=== PATIENT | female | born 1960 | race Caucasian/White ===

== ENCOUNTER → 2016-08-24 | Outpatient (CLI) | payer BC, OTHER ==
[~2016-08-24] VITALS: Ht 152.4 cm; Wt 132.9 kg
[~2016-08-24] MED LIST: LIRA18IN SQ; LISI-725 PO; REPA1TAB40 PO
[2016-08-24 15:24] VITALS: BP 125/73; PULSE 105; Ht 152.4 cm; Wt 132.9 kg
== END | disposition home or self-care (01) ==
LOC: C.NEUR 14:21
PROVIDERS: ATTEND Physician Assistant
DX: G47.33 Obstructive sleep apnea (adult) (pediatric) (principal)

== ENCOUNTER → 2016-09-04 | Outpatient (CLI) | payer OTHER ==
[2016-09-04 13:32] LABS: URINE APPEARANCE TURBID (CLEAR); URINE BILIRUBIN NEG (NEG); URINE COLOR YELLOW; URINE EPITHELIAL CELL AUTO >30 /lpf (0-5); URINE NITRITE NEG (NEG); URINE SPECIFIC GRAVITY 1.027 (1.000-1.030); UROBILINOGEN NEG (NEG); ZZUR CULT IF INDIC CLEAN CATCH YES
[2016-09-04 13:39] LABS: MANUAL MICROSCOPIC REQUIRED? NO; REVIEW REQ? NO
== END | disposition home or self-care (01) ==
LOC: C.LABMFLN 11:14
PROVIDERS: ATTEND Internal Medicine
DX: R39.9 Unspecified symptoms and signs involving the genitourinary system (principal)

== ENCOUNTER → 2016-09-24 | Outpatient (CLI) | payer OTHER ==
[~2016-09-24] MED LIST changes: -REPA1TAB40 PO; +REPA1TAB42 PO
[2016-09-24 14:04] LABS: ESTIMATED AVERAGE GLUCOSE 151 mg/dl; HA1C FLAG Normal (Normal)
[2016-09-24 14:14] LABS: RATIO 4.8 mcg/mg (0-30.0)
[2016-09-24 14:26] LABS: ALT/SGPT 37 U/L (12-78); BLOOD UREA NITROGEN 10 mg/dl (7-18); BUN/CREATININE RATIO 15.8 (10-20); CALCIUM 9.1 mg/dl (8.5-10.1); CARBON DIOXIDE 28 mmol/L (21-32); CHLORIDE 102 mmol/L (98-107); CHOLESTEROL 135 mg/dl (0-200); CREATININE 0.62 mg/dl (0.60-1.20); GLUCOSE 97 mg/dl (70-99); POTASSIUM 4.1 mmol/L (3.5-5.1); SODIUM 137 mmol/L (136-145); TRIGLYCERIDES 82 mg/dl (0-150); VERY LOW DENSITY LIPOPROT CALC 16 mg/dl
[2016-09-24 14:37] LABS: ALB/GLOB RATIO 0.9 (0.9-2); ALKALINE PHOSPHATASE 104 U/L (45-117); AST/SGOT 24 U/L (15-37); CHOLESTEROL/HDL RATIO 2.5; HDL CHOLESTEROL 53 mg/dl; LDL CHOLESTEROL CALCULATED 66 mg/dl; THYROID STIMULATING HORMONE 0.829 uIu/ml (0.300-4.500)
== END | disposition home or self-care (01) ==
LOC: C.LABMFLN 11:29
PROVIDERS: ATTEND Nurse Practitioner Adult Health
DX: I10 Essential (primary) hypertension (principal); K76.0 Fatty (change of) liver, not elsewhere classified; E11.65 Type 2 diabetes mellitus with hyperglycemia; E55.9 Vitamin D deficiency, unspecified

== ENCOUNTER → 2017-01-27 | Outpatient (CLI) | payer OTHER ==
[~2017-01-27] MED LIST changes: +REPA1TAB40 PO; -REPA1TAB42 PO
== END | disposition home or self-care (01) ==
LOC: C.PAPS 11:31
PROVIDERS: ATTEND Obstetrics & Gynecology
DX: Z12.4 Encounter for screening for malignant neoplasm of cervix (principal); Z11.51 Encounter for screening for human papillomavirus (HPV)

== ENCOUNTER → 2017-01-27 | Outpatient (CLI) | payer OTHER ==
--- NOTE | 2017-01-28 07:51 | MAMMOGRAPHY REPORT ---
BILATERAL DIGITAL SCREENING MAMMOGRAM TOMOSYNTHESIS WITH CAD: 01/27/2017 CLINICAL HISTORY: Routine screening. Patient has no complaints. TECHNIQUE: Breast tomosynthesis in addition to standard 2D mammography was performed. Current study was also evaluated with a Computer Aided Detection (CAD) system. COMPARISON: Comparison is made to exams dated: 01/27/2016 mammogram, 10/22/2014 mammogram, 10/19/2013 ma mmogram, 10/18/2012 mammogram, 03/24/2011 mammogram, and 02/13/2009 mammogram - [facility] nter. BREAST COMPOSITION: The tissue of both breasts is almost entirely fatty. FINDINGS: There is a a stable benign reniform circumscribed mass in the left upper outer quadrant an d a stable focal asymmetry with associated coarse/rim calcification also in the left upper outer quad rant posteriorly. No suspicious mass, architectural distortion or cluster of microcalcifications is seen bilaterally. IMPRESSION: ACR BI-RADS CATEGORY 2: BENIGN There is no mammographic evidence of malignancy. A 1 year screening mammogram is recommended. The pa tient will receive written notification of the results. Approximately 10% of breast cancers are not detected with mammography. A negative mammographic report should not delay biopsy if a clinically suggestive mass is present. Laila Nolasco M.D. ay/:01/27/2017 12:57:31 Tool Pusher: Eula SHEN)(Gy[place]), [facility] letter sent: Normal 1/2 BI-RADS Code: ACR BI-RADS Category 2: Benign
== END | disposition home or self-care (01) ==
LOC: C.MAMM 09:59
PROVIDERS: ATTEND Obstetrics & Gynecology
DX: Z12.31 Encounter for screening mammogram for malignant neoplasm of breast (principal); N63.21 Unspecified lump in the left breast, upper outer quadrant

== ENCOUNTER 2017-09-26 21:25 | Inpatient (IN) | payer OTHER ==
[~2017-09-26] VITALS: Ht 152.4 cm; Wt 139.8 kg
[2017-09-26] MEDS ORDERED: ACETAMINOPHEN 325 MG TAB PO STA (21:49)
[2017-09-26] MEDS ORDERED: PROCHLORPERAZINE 5 MG/ML 2 ML VIAL IV STA (21:49)
[2017-09-26] MEDS ORDERED: SODIUM CHLORIDE 0.9% 500ML 500 ML IV STA (21:49)
--- NOTE | 2017-09-26 22:07 | EMERGENCY ROOM VISIT NOTE ---
History Report prepared by Octaviano: Rony Baldwin Under the Supervision of: Dr. Julian Sidhu M.D. First contact with patient: 21:33 Chief Complaint: NEURO SYMPTOMS Stated Complaint: B/L EAR PAIN, FACIAL SWELLING,RT SIDE FACIAL DROOP History of Present Illness The patient is a 57 year old white female with a past medical history of diabetes and heart disease who presents to the Emergency Room with complaints of some persistent "numbness" and "tingling" in the right side of her face that began on Wednesday, 2 days ago. The patient states that her symptoms initially began on Wednesday, 4 days ago when she first experienced a "throbbing " in her ears bilaterally. The pain in her ears is now improved in the left ear , but is still the same in the right. The left ear was improved with Aspirin. On Wednesday the patient noticed a droop to the right side of her smile while she was going her hair in the mirror. She then developed the numbness and tingling in the right side of her face. The patient notes that her swallowing is fine as is her vision. She does note a "headache" from the persistent throbbing in her ears. She adds that she does have a family history of TIA. Source of History: patient Onset: 2 days ago Position: head (Right side of face ) Quality: numbness (tingling) Timing: other (persistent) Associated Symptoms: + headache Note: Ears throbbing Review of Systems See HPI for pertinent positives and negatives. A total of ten systems were reviewed and were otherwise negative. Past Medical & Surgical Medical Problems: (1) Endometrial hyperplasia Family History Cancer Diabetes mellitus Heart disease Hypertension Social History Smoking Status: Never Smoker Alcohol Use: none Marital Status: Occupation Status: employed Current/Historical Medications Scheduled Chlorhexidine Gluconate ([facility]vs Antiseptic Skin Clean), 1 APPLN TOP DAILY Dulaglutide (Trulicity), 1.5 ML SQ WK Insulin Glargine (Basaglar Kwikpen), 30 UNITS SQ UD Insulin Glargine (Basaglar Kwikpen), 40 UNITS SQ UD Insulin Glargine (Basaglar Kwikpen), 20 UNITS SQ BID UD Lisinopril (Lisinopril), 20 UNITS PO DAILY Repaglinide (Repaglinide), 2 MG PO BID Allergies Coded Allergies: Latex1 -Allergic Contact Dermititis (Verified Allergy, Unknown, REDNESS, ) Physical Exam Vital Signs Date Time Temp Pulse Resp B/P (MAP) Pulse Ox O2 Delivery O2 Flow Rate FiO2 09/27/17 01:25 84 16 107/54 92 Room Air 09/26/17 23:35 102 20 135/72 96 Room Air 09/26/17 21:28 36.6 102 18 154/91 95 Room Air Physical Exam GENERAL: Awake, alert, well-appearing, NAD HENT: Normocephalic, atraumatic. EYES: Normal conjunctiva. Sclera non-icteric. PERRL. No anisocoria. NECK: Supple. No nuchal rigidity. FROM. RESPIRATORY: CTAB, no rhonchi, wheezing, crackles CARDIAC: RRR, no MRG ABDOMEN: Soft, NTND, BS+ MSK: No chest wall TTP, no LE edema NEURO: CN 2-12 intact with the exception of some right sided mouth drooping, 5/ 5 upper and lower extremity strength, no dysmetria, no drift, good finger to nose, no sensory deficits. Finger count grossly normal. SKIN: No rash or jaundice noted. Medical Decision & Procedures ER Provider Diagnostic Interpretation: Radiology results as stated below per my review and radiologist interpretation: CT HEAD WITHOUT CONTRAST (CT) CLINICAL HISTORY: Right facial droop COMPARISON STUDY: No previous studies for comparison. TECHNIQUE: Axial CT of the brain is performed from the vertex to the skull base. IV contrast was not administered for this examination. A dose lowering technique was utilized adhering to the principles of ALARA. CT DOSE: 601.98 mGy.cm FINDINGS: No intra or extra-axial mass lesions are visualized. There is no CT evidence of acute cortical infarction. There is no evidence of midline shift. There is no acute hemorrhage. No calvarial fractures are visualized. There are minor white matter hypodensities likely on a small vessel basis. There is no evidence of pathologic ventricular dilatation. There is no evidence of acute sinusitis IMPRESSION: No acute intracranial findings Electronically signed by: Mansoor Figueroa M.D. 09/26/2017 10:11 PM Dictated Date/Time: 09/26/2017 10:10 PM MRI head: Impression: Enhancing T2 weighted hyperintensity in the right ruddy near the location of the facial nuclei which most likely represents a subacute infarction. Demyelinating lesion could potentially have a similar appearance. However, no other lesions are seen. No mass lesion, mass-effect, or hemorrhage. Mild parenchymal volume loss. Orbits appear normal. Right middle ear and mastoid effusion. Recommend correlation for symptoms of otomastoiditis. Paranasal sinuses are clear. Laboratory Results 09/26/17 22:15 Red Blood Count 4.33, Mean Corpuscular Volume 91.5, Mean Corpuscular Hemoglobin 29.3, Mean Corpuscular Hemoglobin Concent 32.1, Mean Platelet Volume 9.8, Neutrophils (%) (Auto) 66.7, Lymphocytes (%) (Auto) 25.5, Monocytes (%) (Auto) 7.2, Eosinophils (%) (Auto) 0.0, Basophils (%) (Auto) 0.2, Neutrophils # (Auto) 6.02, Lymphocytes # (Auto) 2.30, Monocytes # (Auto) 0.65, Eosinophils # (Auto) 0.00, Basophils # (Auto) 0.02 09/26/17 22:15 Test 09/26/17 22:15 09/26/17 23:30 White Blood Count 9.03 K/uL (4.8-10.8) Red Blood Count 4.33 M/uL (4.2-5.4) Hemoglobin 12.7 g/dL (12.0-16.0) Hematocrit 39.6 % (37-47) Mean Corpuscular Volume 91.5 fL (80-100) Mean Corpuscular Hemoglobin 29.3 pg (25-34) Mean Corpuscular Hemoglobin Concent 32.1 g/dl (32-36) Platelet Count 286 K/uL (130-400) Mean Platelet Volume 9.8 fL (7.4-10.4) Neutrophils (%) (Auto) 66.7 % Lymphocytes (%) (Auto) 25.5 % Monocytes (%) (Auto) 7.2 % Eosinophils (%) (Auto) 0.0 % Basophils (%) (Auto) 0.2 % Neutrophils # (Auto) 6.02 K/uL (1.4-6.5) Lymphocytes # (Auto) 2.30 K/uL (1.2-3.4) Monocytes # (Auto) 0.65 K/uL (0.11-0.59) Eosinophils # (Auto) 0.00 K/uL (0-0.5) Basophils # (Auto) 0.02 K/uL (0-0.2) RDW Standard Deviation 52.1 fL (36.4-46.3) RDW Coefficient of Variation 15.6 % (11.5-14.5) Immature Granulocyte % (Auto) 0.4 % Immature Granulocyte # (Auto) 0.04 K/uL (0.00-0.02) Prothrombin Time 10.0 SECONDS (9.0-12.0) Prothromb Time International Ratio 1.0 (0.9-1.1) Activated Partial Thromboplast Time 23.9 SECONDS (21.0-31.0) Partial Thromboplastin Ratio 0.9 Anion Gap 8.0 mmol/L (3-11) Est Creatinine Clear Calc Drug Dose 116.0 ml/min Estimated GFR () 110.4 Estimated GFR (Non- 95.2 BUN/Creatinine Ratio 18.0 (10-20) Calcium Level 9.2 mg/dl (8.5-10.1) Phosphorus Level 3.6 mg/dl (2.5-4.9) Magnesium Level 2.2 mg/dl (1.8-2.4) Lyme Disease IgG Antibody NEG (NEG) Lyme Disease IgM Antibody NEG (NEG) Urine Color YELLOW Urine Appearance CLEAR (CLEAR) Urine pH 5.0 (4.5-7.5) Urine Specific [place] 1.026 (1.000-1.030) Urine Protein NEG (NEG) Urine Glucose (UA) 2+ (NEG) Urine Ketones NEG (NEG) Urine Occult Blood NEG (NEG) Urine Nitrite NEG (NEG) Urine Bilirubin NEG (NEG) Urine Urobilinogen NEG (NEG) Urine Leukocyte Esterase NEG (NEG) Urine WBC (Auto) 1-5 /hpf (0-5) Urine RBC (Auto) 0-4 /hpf (0-4) Urine Hyaline Casts (Auto) 0 /lpf (0-5) Urine Epithelial Cells (Auto) 10-20 /lpf (0-5) Urine Bacteria (Auto) NEG (NEG) Laboratory results reviewed by me Medications Administered Medications (Trade) Dose Ordered Sig/Artie Route Start Time Stop Time Status Last Admin Dose Admin Prochlorperazine Edisylate (Compazine Inj) 10 mg NOW STAT IV 09/26/17 21:49 09/26/17 21:51 DC 09/26/17 22:28 10 MG Acetaminophen (Tylenol Tab) 650 mg NOW STAT PO 09/26/17 21:49 09/26/17 21:51 DC 09/26/17 22:29 650 MG Sodium Chloride 500 ml @ 500 mls/hr Q1H STAT IV 09/26/17 21:49 09/26/17 22:48 DC 09/26/17 22:29 500 MLS/HR Methylprednisolone Sodium Succinate (Solu-Medrol IV) 125 mg NOW STAT IV 09/26/17 23:47 09/26/17 23:48 DC 09/27/17 00:00 125 MG ECG Per My Interpretation Indication: other (stroke) Rate (beats per minute): 93 Rhythm: normal sinus Findings: other (Normal [facility], normal interval, no STS or TWI) ED Course 2136: The patient was evaluated in room C5. A complete history and physical exam was performed. Medical Decision The patient is a 57 year old white female with a past medical history of diabetes and heart disease who presents to the Emergency Room with complaints of some persistent "numbness" and "tingling" in the right side of her face that began on Wednesday, 2 days ago. Nursing notes reviewed. Ancillary studies and prior records reviewed. Differential diagnosis: Etiologies such as metabolic, infection, hypoglycemia, electrolyte abnormalities , cardiac sources, intracerebral event, toxicologic, neurologic, as well as others were entertained. Patient was seen and evaluated the bedside. The patient did notice that she was having some significant ear pain approximately 5 days ago. The patient noticed that she was having some difficulty with smiling on the right side of her face beginning Wednesday. The patient denies any recent swimming or changes in elevation. On exam it is very difficult in order to look in the patient's ear canal she has very narrow canals and could not visualize appropriately the tympanic membranes. The patient does complain of pain with insertion of the otoscope. The patient does not have any drainage and the patient's auricle does not appear inflamed. Patient did have blood work completed along with a CT of the brain and Lyme's test. The patient's blood work is fairly unremarkable. Patient does have a known history of diabetes the patient's blood sugar was elevated but bicarb is normal. The patient CT was negative. Lyme's test is also negative. I did discuss with the patient that this sounds more peripheral in nature given the patient's ear pain with associated inability to raise the right side of her mouth. It is subtle. In order to further rule out central etiology the patient was agreeable to an MRI of the brain. The patient was also given some methylprednisolone as there was the thought that this may be a Arredondo's palsy. The other consideration would be given the patient's diabetes that she could have a palsy secondary to her diabetic neuropathy. Another consideration might be an infectious etiology given the patient's ear pain and discomfort. Patient's MRI was read as concerning for a small lesion in the right ruddy which would explain the patient's facial palsy. Given this I did discuss the case with the on-call hospitalist who agreed to further evaluate and treat the patient. Of note the patient had already taken 2 full dose aspirin earlier today. Medication Reconcilliation Current Medication List: was personally reviewed by me Blood Pressure Screening Patient's blood pressure: Elevated blood pressure Blood pressure disposition: Elevated BP felt to be situational Impression Primary Impression: Ischemic stroke Additional Impressions: Hyperglycemia Facial droop as late effect of cerebrovascular accident (CVA) Otitis media Scribe Attestation The scribe's documentation has been prepared under my direction and personally reviewed by me in its entirety. I confirm that the note above accurately reflects all work, treatment, procedures, and medical decision making performed by me. Departure Information Dispostion Being Evaluated By Hospitalist Referrals ,César Marroquin M.D. (PCP) Patient Instructions My [facility] Stroke History Time Last Known Well Wednesday Stroke t-PA Criteria Reviewed Does NOT meet criteria for t-PA Reason t-PA Not Given Treatment not indicated (NIH 1 and symptoms since Wednesday) Problem Qualifiers Additional Impressions: Otitis media Otitis media type: suppurative Chronicity: acute Laterality: right Recurrence: not specified as recurrent Spontaneous tympanic membrane rupture: with spontaneous rupture Qualified Codes: H66.011 - Acute suppurative otitis media with spontaneous rupture of ear drum, right ear
--- NOTE | 2017-09-26 22:12 | DIAGNOSTIC IMAGING REPORT ---
CT HEAD WITHOUT CONTRAST (CT) CLINICAL HISTORY: Right facial droop COMPARISON STUDY: No previous studies for comparison. TECHNIQUE: Axial CT of the brain is performed from the vertex to the skull base. IV contrast was not administered for this examination. A dose lowering technique was utilized adhering to the principles of ALARA. CT DOSE: 601.98 mGy.cm FINDINGS: No intra or extra-axial mass lesions are visualized. There is no CT evidence of acute cortical infarction. There is no evidence of midline shift. There is no acute hemorrhage. No calvarial fractures are visualized. There are minor white matter hypodensities likely on a small vessel basis. There is no evidence of pathologic ventricular dilatation. There is no evidence of acute sinusitis IMPRESSION: No acute intracranial findings Electronically signed by: Mansoor Figueroa M.D. 09/26/2017 10:11 PM Dictated Date/Time: 09/26/2017 10:10 PM
[2017-09-26] MEDS ORDERED: LISI-726 PO (22:15)
[2017-09-26] MEDS ORDERED: DULA0.5I SQ (22:15)
[2017-09-26] MEDS ORDERED: CHLO4SOL TOP (22:15)
[2017-09-26] MEDS ORDERED: INSU100I23 SQ ×2 (22:15)
[2017-09-26] MEDS ORDERED: REPA1TAB10 PO (22:15)
[2017-09-26 22:36] LABS: BASO % 0.2 %; BASO ABS # 0.02 K/uL (0-0.2); HEMATOCRIT 39.6 % (37-47); HEMOGLOBIN 12.7 g/dL (12.0-16.0); IG# 0.04 K/uL (0.00-0.02); LYMPH % 25.5 %; MEAN CELL VOLUME 91.5 fL (80-100); MEAN CORPUSCULAR HEMOGLOBIN 29.3 pg (25-34); MEAN CORPUSCULAR HGB CONC 32.1 g/dl (32-36); MEAN PLATELET VOLUME 9.8 fL (7.4-10.4); MONO % 7.2 %; MONO ABS # 0.65 K/uL (0.11-0.59); NEUT % 66.7 %; NEUT ABS # 6.02 K/uL (1.4-6.5); PLATELET COUNT 286 K/uL (130-400); RED CELL DISTRIBUTION WIDTH CV 15.6 % (11.5-14.5); RED CELL DISTRIBUTION WIDTH SD 52.1 fL (36.4-46.3); WHITE BLOOD COUNT 9.03 K/uL (4.8-10.8)
[2017-09-26 22:45] LABS: PTT PATIENT 23.9 SECONDS (21.0-31.0)
[2017-09-26 22:54] LABS: CALCIUM 9.2 mg/dl (8.5-10.1); CREATININE 0.71 mg/dl (0.60-1.20); PHOSPHORUS 3.6 mg/dl (2.5-4.9); POTASSIUM 3.9 mmol/L (3.5-5.1)
[2017-09-26] MEDS ORDERED: METHYLPREDNISOLONE 125 MG VIAL IV STA (23:47)
[2017-09-27] MEDS ORDERED: GADAVIST IV PRN ×2 (00:45→15:15)
[2017-09-27] MEDS ORDERED: OFLO0.3D4 OT (02:12)
[2017-09-27] MEDS ORDERED: [UNRECOGNIZED DRUG - CODE] PO (02:12)
[2017-09-27] MEDS ORDERED: MAGNESIUM HYDROXIDE SUSP 30 ML UDC PO PRN (03:00)
[2017-09-27] MEDS ORDERED: ACETAMINOPHEN 325 MG TAB PO PRN (03:00)
[2017-09-27] MEDS ORDERED: PHARMACIST DISCHARGE MED REC CONSULT PRN (03:00)
[2017-09-27] MEDS ORDERED: ONDANSETRON INJ 2 MG/ML 2 ML VIAL IV PRN (03:00)
[2017-09-27] MEDS ORDERED: AMOXICILLIN/CLAVULANATE TAB 875 MG TAB PO ONE (03:00)
[2017-09-27] MEDS ORDERED: ALUMINUM/MAGNESIUM/SIMETH (MAALOX MAX) 30 ML UDC PO PRN (03:00)
[2017-09-27] MEDS ORDERED: POLYETHYLENE (MIRALAX) 17 GM PACK PO PRN (03:00)
--- NOTE | 2017-09-27 03:28 | History and Physical ---
History & Physical Date & Time of Service: Sep 27, 2017 at 03:08 Chief Complaint: B/L Ear Pain, Facial Swelling,Rt Side Facial Droop Primary Care Physician: César Lind M.D. History of Present Illness Source: patient, hospital records, other 57 y/o F Hx DM, HTN, obese. The pt has had BL ear pain, more so on the R for approximately one week. The hearing in her R ear has deteriorated. She has not had fevers. 2 days prior, she also developed numbness of the R side of her face followed by a R facial droop. She denies any upper extremity weakness, visual changes or impaired balance. An MRI of the brain was obtained in the ER. There is evidence of a middle ear infection and mastoiditis. Additionally , a lesion in the ruddy adjacent to the facial nuclei is present and likely represents a subacute infarct. Past Medical/Surgical History 1) DM II 2) HTN 3) Obese Family History Cancer Diabetes mellitus Heart disease Hypertension Social History Smoking Status: Never Smoker Marital Status: Occupational Status: employed Immunizations History of Influenza Vaccine: No History of Tetanus Vaccine?: Yes Tetanus Immunization Date: Dec 11, 1999 History of Pneumococcal: No History of Hepatitis B Vaccine: Yes Hepatitis Immunization Date: Dec 10, 2004 Allergies Coded Allergies: Latex1 -Allergic Contact Dermititis (Verified Allergy, Unknown, REDNESS, ) Home Medications Scheduled Chlorhexidine Gluconate ([facility]vs Antiseptic Skin Clean), 1 APPLN TOP DAILY Dulaglutide (Trulicity), 1.5 ML SQ WK Insulin Glargine (Basaglar Kwikpen), 30 UNITS SQ UD Insulin Glargine (Basaglar Kwikpen), 40 UNITS SQ UD Insulin Glargine (Basaglar Kwikpen), 20 UNITS SQ BID UD Lisinopril (Lisinopril), 20 UNITS PO DAILY Repaglinide (Repaglinide), 2 MG PO BID Physical Exam Vital Signs Date Time Temp Pulse Resp B/P (MAP) Pulse Ox O2 Delivery O2 Flow Rate FiO2 09/27/17 01:25 84 16 107/54 92 Room Air 09/26/17 23:35 102 20 135/72 96 Room Air 09/26/17 21:28 36.6 102 18 154/91 95 Room Air General Appearance: WD/WN, no apparent distress Head: normocephalic Eyes: normal inspection ENT: + pertinent finding (I cannot appreciate any erythema on otoscopic exam, however, she is very tender within both ears, more so on the R) Neck: supple Respiratory/Chest: chest non-tender, lungs clear, normal breath sounds Cardiovascular: regular rate, rhythm, no edema, no gallop Abdomen/GI: normal bowel sounds, non tender, soft Back: normal inspection, no CVA tenderness Extremities/Musculoskelatal: normal inspection, no calf tenderness, normal capillary refill Neurologic/Psych: + pertinent finding (Onfull neuro exam there are no deficits aside from a R facial droop and numbness to light touch - both limited to the lower face) Skin: normal color Diagnostics Laboratory Results Results Past 24 Hours Test 09/26/17 22:15 09/26/17 23:30 09/27/17 02:55 Range/Units White Blood Count 9.03 4.8-10.8 K/uL Red Blood Count 4.33 4.2-5.4 M/uL Hemoglobin 12.7 12.0-16.0 g/dL Hematocrit 39.6 37-47 % Mean Corpuscular Volume 91.5 80-100 fL Mean Corpuscular Hemoglobin 29.3 25-34 pg Mean Corpuscular Hemoglobin Concent 32.1 32-36 g/dl Platelet Count 286 130-400 K/uL Mean Platelet Volume 9.8 7.4-10.4 fL Neutrophils (%) (Auto) 66.7 % Lymphocytes (%) (Auto) 25.5 % Monocytes (%) (Auto) 7.2 % Eosinophils (%) (Auto) 0.0 % Basophils (%) (Auto) 0.2 % Neutrophils # (Auto) 6.02 1.4-6.5 K/uL Lymphocytes # (Auto) 2.30 1.2-3.4 K/uL Monocytes # (Auto) 0.65 0.11-0.59 K/uL Eosinophils # (Auto) 0.00 0-0.5 K/uL Basophils # (Auto) 0.02 0-0.2 K/uL RDW Standard Deviation 52.1 36.4-46.3 fL RDW Coefficient of Variation 15.6 11.5-14.5 % Immature Granulocyte % (Auto) 0.4 % Immature Granulocyte # (Auto) 0.04 0.00-0.02 K/uL Prothrombin Time 10.0 9.0-12.0 SECONDS Prothromb Time International Ratio 1.0 0.9-1.1 Activated Partial Thromboplast Time 23.9 21.0-31.0 SECONDS Partial Thromboplastin Ratio 0.9 Sodium Level 138 136-145 mmol/L Potassium Level 3.9 3.5-5.1 mmol/L Chloride Level 101 98-107 mmol/L Carbon Dioxide Level 29 21-32 mmol/L Anion Gap 8.0 3-11 mmol/L Blood Urea Nitrogen 13 7-18 mg/dl Creatinine 0.71 0.60-1.20 mg/dl Est Creatinine Clear Calc Drug Dose 116.0 ml/min Estimated GFR () 110.4 Estimated GFR (Non- 95.2 BUN/Creatinine Ratio 18.0 10-20 Random Glucose 208 70-99 mg/dl Calcium Level 9.2 8.5-10.1 mg/dl Phosphorus Level 3.6 2.5-4.9 mg/dl Magnesium Level 2.2 1.8-2.4 mg/dl Lyme Disease IgG Antibody NEG NEG Lyme Disease IgM Antibody NEG NEG Urine Color YELLOW Urine Appearance CLEAR CLEAR Urine pH 5.0 4.5-7.5 Urine Specific [place] 1.026 1.000-1.030 Urine Protein NEG NEG Urine Glucose (UA) 2+ NEG Urine Ketones NEG NEG Urine Occult Blood NEG NEG Urine Nitrite NEG NEG Urine Bilirubin NEG NEG Urine Urobilinogen NEG NEG Urine Leukocyte Esterase NEG NEG Urine WBC (Auto) 1-5 0-5 /hpf Urine RBC (Auto) 0-4 0-4 /hpf Urine Hyaline Casts (Auto) 0 0-5 /lpf Urine Epithelial Cells (Auto) 10-20 0-5 /lpf Urine Bacteria (Auto) NEG NEG Diagnostic Radiology MRI: Lesion in ruddy adjacent to facial nuclei Middle ear and mastoid effusion on R Normal EKG Impression Assessment and Plan 57 y/o F Hx DM, HTN, obese. The pt has had BL ear pain, more so on the R for approximately one week. The hearing in her R ear has deteriorated. She has not had fevers. 2 days prior, she also developed numbness of the R side of her face followed by a R facial droop. She denies any upper extremity weakness, visual changes or impaired balance. An MRI of the brain was obtained in the ER. There is evidence of a middle ear infection and mastoiditis. Additionally , a lesion in the ruddy adjacent to the facial nuclei is present and likely represents a subacute infarct. 1) CVA - she is placed on daily ASA and a statin. She is assigned to telemetry with neurochecks, pending a neurology consult. A lipid profile is pending for AM. MRA is pending. Considering her potential mastoiditis and R sided facial deficits developed concomitantly, it may be that the MRI finding is incidental and that her inflammation or infection is affecting her facial nerve. The top portion of her face appears to be spared currently, although an early bells palsy should be considered. 2) Possible middle ear infection and mastoiditis causing hearing loss. She has not had fevers and her WBC is WNL. She has an appt to see an ENT specialist on Wed. Considering her symptoms and related imaging, she has been placed on Ceftriaxone. Would consider an inpt ENT consult with fevers or evidence of worsening as drainage may eventually become necessary. 3) DM II - placed on a SS 4) HTN - Lisinopril is held. This can likely be restarted in 1-2 days as the infarct appears subacute. Full code - Heparin prophylaxis Total time for this admit including review of labs, meds, imaging, records - discussion with pt and ER attending - 37 min Resuscitation Status VTE Prophylaxis Will order VTE Prophylaxis: Yes
[2017-09-27] MEDS ORDERED: IV FLUIDS COMPLETED PRN (03:30)
[2017-09-27 03:40] VITALS: BP 110/69; PULSE 91; TEMP 36.8; O2SAT 92; BMI 60.2
[2017-09-27] MEDS ORDERED: GLUCOSE 10 TABS/TUBE PO PRN (04:00)
[2017-09-27] MEDS ORDERED: DEXTROSE 50% 50 ML SYR IV PRN (04:00)
[2017-09-27] MEDS ORDERED: GLUCAGON FOR INJ 1 MG VIAL IM PRN (04:00)
[2017-09-27] MEDS ORDERED: GLUCOSE 40% GEL 15 GM TUBE PO PRN (04:00)
[2017-09-27] MEDS ORDERED: CARBOHYDRATES FOR HYPOGLYCEMIA PO PRN (04:00)
[2017-09-27] MEDS ORDERED: CEFTRIAXONE SOD INJ 1 GM in DEXTROSE 5% ADD-VANTAGE 50ML 50 ML IV SCH (06:00)
[2017-09-27] MEDS ORDERED: HEPARIN SOD 5000 UNIT/0.5 ML CARP SQ SCH (06:00)
[2017-09-27] MEDS ORDERED: AMOXICILLIN/CLAVULANATE TAB 875 MG TAB PO SCH (07:30)
[2017-09-27] MEDS: INSULIN ASPART 100 UNITS/ML 3 ML PEN SC SCH ×2 (07:49→13:16)
--- NOTE | 2017-09-27 08:13 | DIAGNOSTIC IMAGING REPORT ---
MRI OF THE BRAIN COMBO CLINICAL HISTORY: Right-sided facial droop. COMPARISON STUDY: CT of the brain dated 09/26/2017. TECHNIQUE: MRI of the brain was performed utilizing various T1 and T2-weighted sequences in the axial, sagittal, and coronal planes. Contrast-enhanced sequences were acquired following the administration of 13.5 cc of Gadavist. FINDINGS: Brain parenchyma: There is a 7 mm T2 hyperintense focus identified within the right pontomedullary junction seen on axial image #7. This demonstrates postcontrast enhancement as seen on coronal image #15. There is the suggestion of faint restricted diffusion within this lesion. There is no hemorrhage or mass effect. No additional foci of restricted diffusion are identified. No additional enhancing mass lesion is identified on the postcontrast images. Cruz-white matter differentiation is preserved. No extra-axial fluid collection is seen. The cerebellar tonsils are normal in configuration. Ventricles, sulci, and cisterns: Normal in configuration. Pituitary and sella: Unremarkable. Intracranial vasculature: Normal flow voids are maintained at the skull base. Orbits: The bony orbits are grossly intact. Orbital contents are normal in appearance. Sinuses and mastoids: Clear. Calvarium: Unremarkable. Cervical cord: Partially visualized cervical spinal cord is normal in morphology and signal intensity. IMPRESSION: 1. There is a subcentimeter T2 hyperintense enhancing lesion identified within the right pontomedullary junction. There is a question of faint restricted diffusion within this lesion and this likely represents a subacute lacunar infarct. Differential considerations include a demyelinating focus or less likely a small neoplastic lesion. Cortical correlation will be required. 3 month precautionary follow-up is recommended. 2. There is no hemorrhage. No additional foci of abnormal enhancement or restricted diffusion are identified. Electronically signed by: Stanislaw Perez M.D. 09/27/2017 8:11 AM Dictated Date/Time: 09/27/2017 7:05 AM
[2017-09-27] MEDS ORDERED: ASPIRIN 325 MG ECTAB PO SCH (09:00)
[2017-09-27] MEDS ORDERED: INSULIN GLARGINE SOLOSTAR 100 UNITS/ML 3 ML PEN SQ SCH (09:00)
--- NOTE | 2017-09-27 09:57 | Neurology Consultation ---
Neurology Consultation Date of Consultation: Sep 27, 2017. Attending Physician: Prakash Roberts D.O. Primary Care Physician: César Lind M.D. Reason for Consultation: Patient is a 57-year-old, who was asked to see the request of Dr. Ba, for neurologic consultation regarding stroke History of Present Illness Source: patient, caregiver, clinic records, hospital records Patient has a longstanding (20+ years) history of hypertension and diabetes. She is on insulin and lisinopril. Patient has no history of heart disease or dyslipidemia. In 2013 she was diagnosed with obstructive sleep apnea and has been on CPAP since. About 1 week ago, the patient noted water in her ears (presumably after showering) with a fullness in her right greater than left ear. This was annoying but not significant. She also noted some decreased hearing on the right since this time. On September 26, she awoke and after showering and getting cleaned up while she was drying her hair she noticed a right facial droop. There was no pain but she did have fullness in her right ear area. She felt tired that morning and later on in the morning. There was some nonspecific discomfort and achiness in the right head and face. There is a little bit of tingling without isela numbness in the right face as well. She is not specific as to where this tingling exactly was. She took a couple of Tylenol and did not notice any improvement. Late morning she drove from her house to a wedding shower about an hour and 15 minutes away. She felt very tired and had several bowel movements. She had eye right-sided headache and ear pain the and continued to have the face dysesthesias. She denied any pain, weakness, or numbness in the limbs, vision problems, swallowing problems, or confusion. She drove home and arrived around 5 p.m. and took 2 aspirin. She then took a nap for an hour, had 2 more bowel movements, and between 6 and 7 in the evening her noted the right facial droop. They decided to come to the emergency room. On September 26, at 2128 hours, blood pressure was 154/91, temperature 36.6, pulse 102, respiratory rate 18, and O2 saturation 95 percent. A right facial droop was noted with no other focal neurologic deficits, meningeal signs, or encephalopathy. CT scan of the head was unremarkable. MRI of the brain was obtained and showed a small faint, enhancing right pontomedullary junction lesion. It was most consistent with an acute stroke, however, a low-grade glioma could not entirely be excluded. There was no mass effect. In general there was mild diffuse atrophy and moderate chronic cerebral ischemia. I reviewed both of these films with Dr. Perez in Radiology. Although there was some trace amount of fluid in the right middle ear, there was no significant mastoiditis or sinusitis seen. CBC was unremarkable. Chem profile revealed an elevated glucose of over 200 and hemoglobin A1c of 8 Urinalysis and Lyme antibody titer was negative. This morning, the patient feels well and she had no events overnight. She remains in normal sinus rhythm. She has a dry mouth from not drinking (NPO) and has no headache pain or numbness. She has a slight hearing loss on the right still. Past Medical/Surgical History Medical Problems: (1) Calcific tendinitis of shoulder Status: Acute (2) Otitis externa Status: Acute (3) Peripheral neuropathy Status: Acute Insulin-dependent diabetes Hypertension Gastroesophageal reflux disease Sleep apnea on CPAP Chronic fatigue History of endometrial hyperplasia Post total abdominal hysterectomy and bilateral salpingo-oophorectomy Post bilateral total knee replacements [address] Zuñiga Family History Mother age 68 during a coronary artery bypass graft procedure. She also had hypertension and diabetes. Father in his mid to late 70s of renal failure. He also had coronary artery disease, diabetes, and hypertension Brother in his 40s of an [place] Social History Patient has never used tobacco products. She only rarely has a drink of alcohol. 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 Smoking Status: Never smoker Smokeless Tobacco Use: No Alcohol Use: socially Drug Use: none Marital Status: Housing Status: lives with significant other Occupation Status: unemployed Allergies Coded Allergies: Latex1 -Allergic Contact Dermititis (Verified Allergy, Unknown, REDNESS, ) Current Inpatient Medications Current Inpatient Medications Medications (Trade) Dose Ordered Sig/Artie Route Start Time Stop Time Status Last Admin Dose Admin Gadobutrol (Gadavist) 13.5 mmol UD PRN IV 09/27/17 00:45 10/01/17 00:44 Aspirin (Ecotrin Tab) 325 mg QAM PO 09/27/17 09:00 10/27/17 08:59 Miscellaneous Information (Pharmacist Discharge Med Rec Consult) 1 ea UD PRN N/A 09/27/17 03:00 10/27/17 02:59 Heparin Sodium (Porcine) (Heparin Sq 5000 Unit/0.5ml) 5,000 unit Q8 SQ 09/27/17 06:00 10/27/17 05:59 09/27/17 06:36 5,000 UNIT Acetaminophen (Tylenol Tab) 650 mg Q4H PRN PO 09/27/17 03:00 10/27/17 02:59 Al Hydrox/Mg Hydrox/Simethicone (Maalox Max Susp) 15 ml Q4H PRN PO 09/27/17 03:00 10/27/17 02:59 Magnesium Hydroxide (Milk Of Magnesia Susp) 30 ml Q12H PRN PO 09/27/17 03:00 10/27/17 02:59 Ondansetron HCl (Zofran Inj) 4 mg Q6H PRN IV 09/27/17 03:00 10/27/17 02:59 Polyethylene (Miralax Powder Packet) 17 gm DAILY PRN PO 09/27/17 03:00 10/27/17 02:59 Ceftriaxone Sodium 1 gm/ Dextrose 50 ml @ 100 mls/hr Q24H IV 09/27/17 06:00 10/07/17 05:59 09/27/17 06:32 100 MLS/HR Insulin Aspart (novoLOG ASPART) SLIDING SCALE G... ACHS SC 09/27/17 07:00 10/27/17 06:59 09/27/17 07:49 4 UNITS Insulin Glargine (Lantus Solostar Pen) 20 units BID SQ 09/27/17 09:00 10/27/17 08:59 09/27/17 07:50 20 UNITS Miscellaneous (Iv Fluids Completed) 1 ea PRN PRN N/A 09/27/17 03:30 09/27/18 03:29 Glucose (Glucose 40% Gel) 15-30 GRAMS 15 GRAMS... UD PRN PO 09/27/17 04:00 10/27/17 03:59 Glucose (Glucose Chew Tab) 4-8 Tablets 4 Tabl... UD PRN PO 09/27/17 04:00 10/27/17 03:59 Dextrose (Dextrose 50% 50ML Syringe) 25-50ML 25ML FOR ... UD PRN IV 09/27/17 04:00 10/27/17 03:59 Glucagon (Glucagon Inj) 1 mg UD PRN IM 09/27/17 04:00 10/27/17 03:59 Carbohydrates (Carbohydrates For Hypoglycemia) 15-30 GRAMS 15 grams if BSG 54-69... UD PRN PO 09/27/17 04:00 10/27/17 03:59 Review of Systems Constitutional: + fatigue, No fever, No weakness Eyes: No worsening of vision, No diplopia ENT: + hearing loss, No sore throat, No trouble swallowing Respiratory: No cough, No shortness of breath Cardiovascular: No chest pain, No palpitations Abdomen: No pain, No nausea Musculoskeletal: No joint pain, No muscle pain Genitourinary - Female: No dysuria, No urinary incontinence Neurologic: No memory loss, No weakness, No numbness/tingling, No vertigo, No balance problems Psychiatric: No depression symptoms, No anxiety Endocrine: + fatigue Hematologic / Lymphatic: No abnormal bleeding/bruising Integumentary: No rash Allergic / Immunologic: No hives Physical Exam Vital Signs (Past 24 Hrs): Date Time Temp Pulse Resp B/P (MAP) Pulse Ox O2 Delivery O2 Flow Rate FiO2 09/27/17 03:40 36.8 91 18 110/69 92 Room Air 09/27/17 03:03 92 16 137/84 95 Room Air 09/27/17 01:25 84 16 107/54 92 Room Air 09/26/17 23:35 102 20 135/72 96 Room Air 09/26/17 21:28 36.6 102 18 154/91 95 Room Air Patient is right-handed. The patient is awake and alert. Speech is normal without aphasia or dysarthria. Mentation and thought processes are intact with full orientation and normal fund of knowledge. Mood and affect are normal and appropriate. Appearance and grooming are normal. Long and short-term memory are intact. The discs are sharp with positive venous pulsations. There are no exudates, hemorrhages, or blood vessel changes seen. Pupils are 4mm bilaterally and reactive to light. Extraocular eye muscles are intact without nystagmus. Visual acuity and visual pimentel seem normal grossly to confrontation. There are no deficits to sensation of the face bilaterally. Corneal reflexes are positive bilaterally. Although there is a very mild right facial droop at the corner of the mouth it does move well voluntarily. Forehead has symmetrical strength bilaterally. Hearing seems intact grossly to voice but there may be some slight decreased on the right. Palate moves well without asymmetry. There is normal sternocleidomastoid and trapezius strength bilaterally. Tongue is midline with good strength bilaterally. Neck is with full range of motion without discomfort. There are no cervical bruits. There are no cranial or ocular bruits. Heart is without murmur. Cervical, thoracic, and lumbar spine are nontender to palpation. Gait is normal. There is good arm swing, turn, stance, and balance. Stance is quite normal eyes open or closed With outstretched arms there is no drift. There are no resting, postural, or action tremors. There is no ataxia with [id number] testing. There is good facility in the hands. There are no abnormal involuntary movements noted. Motor strength is 5/5 diffusely in the arms bilaterally including deltoids, biceps, brachioradialis, wrist flexors and extensors, pressure steamer tender, and intrinsic hand muscles. Motor strength is 5/5 diffusely in the legs bilaterally including hip flexors, quadriceps, hamstring, gastrocnemius, tibialis anterior, tibialis posterior, and peroneii muscles bilaterally. Toe extensors are normal and there is good bulk in the extensor digitorum brevis muscle bilaterally. The limbs have good tone without rigidity or spasticity, and there is no atrophy noted. Muscle bulk is normal, there is no tenderness, no myotonia noted to percussion, and no fasciculations seen. Sensory examination is intact to pin and touch throughout all four limbs. Reflexes are 1/4 in the biceps, triceps, brachioradialis, quadriceps, and Achilles tendons bilaterally. Toes are downgoing with plantar stimulation bilaterally. Peripheral pulses are present and of normal quality distally in all four limbs. There is no peripheral edema noted. Laboratory Results Past 24 Hours: 09/26/17 22:15 Red Blood Count 4.33, Mean Corpuscular Volume 91.5, Mean Corpuscular Hemoglobin 29.3, Mean Corpuscular Hemoglobin Concent 32.1, Mean Platelet Volume 9.8, Neutrophils (%) (Auto) 66.7, Lymphocytes (%) (Auto) 25.5, Monocytes (%) (Auto) 7.2, Eosinophils (%) (Auto) 0.0, Basophils (%) (Auto) 0.2, Neutrophils # (Auto) 6.02, Lymphocytes # (Auto) 2.30, Monocytes # (Auto) 0.65, Eosinophils # (Auto) 0.00, Basophils # (Auto) 0.02 09/26/17 22:15 Test 09/26/17 22:15 09/26/17 23:30 09/27/17 07:27 White Blood Count 9.03 K/uL (4.8-10.8) Red Blood Count 4.33 M/uL (4.2-5.4) Hemoglobin 12.7 g/dL (12.0-16.0) Hematocrit 39.6 % (37-47) Mean Corpuscular Volume 91.5 fL (80-100) Mean Corpuscular Hemoglobin 29.3 pg (25-34) Mean Corpuscular Hemoglobin Concent 32.1 g/dl (32-36) Platelet Count 286 K/uL (130-400) Mean Platelet Volume 9.8 fL (7.4-10.4) Neutrophils (%) (Auto) 66.7 % Lymphocytes (%) (Auto) 25.5 % Monocytes (%) (Auto) 7.2 % Eosinophils (%) (Auto) 0.0 % Basophils (%) (Auto) 0.2 % Neutrophils # (Auto) 6.02 K/uL (1.4-6.5) Lymphocytes # (Auto) 2.30 K/uL (1.2-3.4) Monocytes # (Auto) 0.65 K/uL (0.11-0.59) Eosinophils # (Auto) 0.00 K/uL (0-0.5) Basophils # (Auto) 0.02 K/uL (0-0.2) RDW Standard Deviation 52.1 fL (36.4-46.3) RDW Coefficient of Variation 15.6 % (11.5-14.5) Immature Granulocyte % (Auto) 0.4 % Immature Granulocyte # (Auto) 0.04 K/uL (0.00-0.02) Prothrombin Time 10.0 SECONDS (9.0-12.0) Prothromb Time International Ratio 1.0 (0.9-1.1) Activated Partial Thromboplast Time 23.9 SECONDS (21.0-31.0) Partial Thromboplastin Ratio 0.9 Anion Gap 8.0 mmol/L (3-11) Est Creatinine Clear Calc Drug Dose 116.0 ml/min Estimated GFR () 110.4 Estimated GFR (Non- 95.2 BUN/Creatinine Ratio 18.0 (10-20) Estimated Average Glucose 183 mg/dl Hemoglobin A1c 8.0 % (4.5-5.6) Calcium Level 9.2 mg/dl (8.5-10.1) Phosphorus Level 3.6 mg/dl (2.5-4.9) Magnesium Level 2.2 mg/dl (1.8-2.4) Lyme Disease IgG Antibody NEG (NEG) Lyme Disease IgM Antibody NEG (NEG) Urine Color YELLOW Urine Appearance CLEAR (CLEAR) Urine pH 5.0 (4.5-7.5) Urine Specific [place] 1.026 (1.000-1.030) Urine Protein NEG (NEG) Urine Glucose (UA) 2+ (NEG) Urine Ketones NEG (NEG) Urine Occult Blood NEG (NEG) Urine Nitrite NEG (NEG) Urine Bilirubin NEG (NEG) Urine Urobilinogen NEG (NEG) Urine Leukocyte Esterase NEG (NEG) Urine WBC (Auto) 1-5 /hpf (0-5) Urine RBC (Auto) 0-4 /hpf (0-4) Urine Hyaline Casts (Auto) 0 /lpf (0-5) Urine Epithelial Cells (Auto) 10-20 /lpf (0-5) Urine Bacteria (Auto) NEG (NEG) Bedside Glucose 285 mg/dl (70-90) Imaging MRI OF THE BRAIN COMBO CLINICAL HISTORY: Right-sided facial droop. COMPARISON STUDY: CT of the brain dated 09/26/2017. TECHNIQUE: MRI of the brain was performed utilizing various T1 and T2-weighted sequences in the axial, sagittal, and coronal planes. Contrast-enhanced sequences were acquired following the administration of 13.5 cc of Gadavist. FINDINGS: Brain parenchyma: There is a 7 mm T2 hyperintense focus identified within the right pontomedullary junction seen on axial image #7. This demonstrates postcontrast enhancement as seen on coronal image #15. There is the suggestion of faint restricted diffusion within this lesion. There is no hemorrhage or mass effect. No additional foci of restricted diffusion are identified. No additional enhancing mass lesion is identified on the postcontrast images. Cruz-white matter differentiation is preserved. No extra-axial fluid collection is seen. The cerebellar tonsils are normal in configuration. Ventricles, sulci, and cisterns: Normal in configuration. Pituitary and sella: Unremarkable. Intracranial vasculature: Normal flow voids are maintained at the skull base. Orbits: The bony orbits are grossly intact. Orbital contents are normal in appearance. Sinuses and mastoids: Clear. Calvarium: Unremarkable. Cervical cord: Partially visualized cervical spinal cord is normal in morphology and signal intensity. IMPRESSION: 1. There is a subcentimeter T2 hyperintense enhancing lesion identified within the right pontomedullary junction. There is a question of faint restricted diffusion within this lesion and this likely represents a subacute lacunar infarct. Differential considerations include a demyelinating focus or less likely a small neoplastic lesion. Cortical correlation will be required. 3 month precautionary follow-up is recommended. 2. There is no hemorrhage. No additional foci of abnormal enhancement or restricted diffusion are identified. Electronically signed by: Stanislaw Perez M.D. 09/27/2017 8:11 AM Impression 1. Probable very small, acute right pontomedullary CVA On MRI in has some enhancement which can be typical of an acute stroke. However , a very low-grade glioma cannot be excluded either. There is no mass effect. Her clinical picture, however, is most consistent with an acute stroke. She has some very mild right facial droop and dysesthesias of the right face which are improved. She has no right upper extremity or right lower extremity symptoms. NIH SS=1 She has multiple risk factors for stroke including longstanding diabetes and hypertension with an elevated reading on admission. 2. Right ear fullness and hearing loss There is only trace amount of fluid seen in the right middle ear by MRI and radiology notes no significant mastoiditis or sinusitis on imaging studies. She is clinically improved after having had ceftriaxone and some steroids since admission 3. Mild previous chronic cerebral ischemia noted on imaging studies Hypertension and diabetes are her major risk factors for this. 4. Chronic fatigue of uncertain etiology Plan 1. Carotid ultrasound and echocardiogram would be reasonable to obtain 2. 81 milligram aspirin tablet daily 3. Control blood pressure keeping mean arterial pressure approximately 100 4. Improved glucose control, trying to lower hemoglobin A1c to closer to 7. 5. Obtain fasting lipid profile 6. Increase activity as able and needs speech therapy to clear her for swallowing. 7. The patient already has appointment with ENT tomorrow at 3 p.m.. It may be possible for the patient to keep this appointment. 8. Follow-up MRI of the brain in 3 months with without contrast to make sure the pontomedullary junction defect has resolved. I would like to follow as an outpatient. I spent a total of 85 minutes with this case including records review, review of MRI and CT films with Dr. Perez in Radiology, direct evaluation the patient at bedside, discussion of the case with Dr. Roberts, clinical staff, and the patient herself the at bedside including differential diagnosis and treatment options.
[2017-09-27 10:20] VITALS: BP 154/82; PULSE 98; O2SAT 94
[2017-09-27] MEDS ORDERED: PERFLUTREN LIPID MICROSPHERE (DEFINITY) IV ONE (11:10)
[2017-09-27 11:14] VITALS: Ht 152.4 cm; Wt 139.8 kg
[2017-09-27 11:44] VITALS: BP 128/72; PULSE 85; TEMP 36.8; O2SAT 98
--- NOTE | 2017-09-27 12:36 | ECHOCARDIOGRAM REPORT ---
*NOTICE TO RECEIVING CONSTITUTION PARTY AGENCY This information is strictly Confidential and protected under [place] law. [place] law prohibits you from making any further disclosure of this information unless further disclosure is expressly permitted by the written consent of the person to whom it pertains or is authorized by law. A general authorization for the release of medical or other information is not sufficient for this purpose. Hospital accepts no responsibility if the information is made available to any other person, INCLUDING THE PATIENT. Interpretation Summary * Name: JESSICA HUBBARD Study Date: 09/27/2017 10:15 AM BP: 110/69 mmHg * Patient Location: C.2T\S\S243\S\1 HR: 91 * : 1960 (M/d/yyyy) Gender: Female Height: 60 in * Age: 57 yrs Ethnicity: CA Weight: 308 lb * Ordering Physician: Prakash Roberts * Referring Physician: Self, Referred * Performed By: Anjali Nugent RDCS * * Reason For Study: Cerebral Ischemia/Embolus * BSA: 2.2 m2 * No cardiac source of emboli noted. * -- Conclusions -- * Left ventricular systolic function is normal. * Grade I diastolic dysfunction, (abnormal relaxation pattern). * Injection of contrast documented no interatrial shunt. * There is mild mitral annular calcification. Procedure Details * A complete two-dimensional transthoracic echocardiogram was performed (2D, M-mode, Doppler and color flow Doppler). * The study was technically difficult. * The study was technically difficult, but visualization was adequate with the administration of Definity ultrasound contrast. * There were technical limitations due to patient'sbody habitus * A saline contrast injection was performed to assess for cardiac shunting. * The injection was performed through an intravenous line in the right arm. * The attending nurse who injected the saline contrast was Annie Orona RN. * A total of 20 cc of agitated saline was given. * A contrast injection of Definity was performed to improve assessment of LV function. * Contrast was injected into an intravenous site in the right arm. * One vial of Definity ultrasound contrast was diluted in normal saline to a total volume of 10 ml. A total of '1' ml of solution was administered during imaging. * Lot # [id number] of Definity utilized for procedure. * Expiration date 1May19. * The attending nurse who injected the contrast agent was Annie Orona RN. Left Ventricle * The left ventricle is grossly normal size. * There is normal left ventricular wall thickness. * Ejection Fraction = 55-60%. * Left ventricular systolic function is normal. * Grade I diastolic dysfunction, (abnormal relaxation pattern). * The left ventricular wall motion is normal. Right Ventricle * The right ventricle is normal in size and function. * The right ventricular systolic function is normal as assessed by tricuspid annular plane systolic excursion (TAPSE) (normal >1.5 cm). Atria * The left atrial size is normal. * Right atrial size is normal. * The interatrial septum is intact with no evidence for an atrial septal defect. * Injection of contrast documented no interatrial shunt. Mitral Valve * The mitral valve is grossly normal. * There is mild mitral annular calcification. * Significant mitral regurgitation is absent. Tricuspid Valve * The tricuspid valve is not well visualized, but is grossly normal. * Significant tricuspid regurgitation is absent. Aortic Valve * The aortic valve is normal in structure and function. * No hemodynamically significant valvular aortic stenosis. * There is no significant aortic regurgitation. Pulmonic Valve * The pulmonic valve is not well visualized. Great Vessels * The aortic root is normal size. Pericardium/Pleural * There is no pericardial effusion. MMode 2D Measurements and Calculations Ao root diam 1.9 cm Ao root area 2.9 cm\S\2 ACS 1.7 cm LVAd ap4 29.1 cm\S\2 LVLd ap4 8.0 cm EDV(MOD-sp4) 88.5 ml EDV(sp4-el) 89.9 ml LVAs ap4 16.3 cm\S\2 LVLs ap4 6.6 cm ESV(MOD-sp4) 33.6 ml ESV(sp4-el) 34.0 ml EF(MOD-sp4) 62.1 % EF(sp4-el) 62.2 % LVAd ap2 31.4 cm\S\2 LVLd ap2 8.5 cm EDV(MOD-sp2) 95.2 ml EDV(sp2-el) 98.4 ml LVAs ap2 19.9 cm\S\2 LVLs ap2 8.1 cm ESV(MOD-sp2) 41.9 ml ESV(sp2-el) 41.7 ml EF(MOD-sp2) 56.0 % EF(sp2-el) 57.6 % LVLd %diff 6.3 % EDV(MOD-bp) 94.6 ml LVLs %diff 18.3 % ESV(MOD-bp) 40.5 ml EF(MOD-bp) 57.1 % SV(MOD-sp4) 55.0 ml SI(MOD-sp4) 24.5 ml/m\S\2 SV(MOD-sp2) 53.3 ml SI(MOD-sp2) 23.8 ml/m\S\2 SV(MOD-bp) 54.0 ml SI(MOD-bp) 24.1 ml/m\S\2 SV(sp4-el) 55.9 ml SI(sp4-el) 24.9 ml/m\S\2 SV(sp2-el) 56.6 ml SI(sp2-el) 25.2 ml/m\S\2 Doppler Measurements and Calculations MV E max lesley 113.8 cm/sec MV A max lesley 133.5 cm/sec MV E/A 0.85 MV dec time 0.20 sec Ao V2 max 196.5 cm/sec Ao max PG 15.4 mmHg Ao max PG (full) 9.9 mmHg LV V1 max PG 5.6 mmHg LV V1 max 118.1 cm/sec PA V2 max 133.7 cm/sec PA max PG 7.2 mmHg
--- NOTE | 2017-09-27 15:15 | DIAGNOSTIC IMAGING REPORT ---
MRA HEAD WITHOUT CONTRAST, MRA NECK COMBO CLINICAL HISTORY: 57 years-old Female presenting with difficulty hearing, right facial droop, no recent injury or history of stroke. TECHNIQUE: MR angiography of the head was performed without the use of intravenous contrast using 3-D [id number] technique. Subsequently, MR angiography of the neck was performed before and after the administration of intravenous contrast.3-D volumetric and/or maximum intensity projection (MIP) images were subsequently reconstructed for review. IV contrast: 12.5 mL of Gadavist. COMPARISON: Noncontrast head CT from 09/26/2017. FINDINGS: MRA HEAD: Anterior circulation: Intracranial portions of the internal carotid arteries patent to the level of the termini. Anterior and middle cerebral arteries patent. Anterior communicating artery patent. Posterior circulation: Codominant vertebral arteries. Intradural portions of the vertebral arteries patent. Posterior inferior cerebellar arteries patent. Basilar artery patent. Anterior inferior cerebellar arteries poorly visualized. Superior cerebellar and posterior cerebral arteries patent. Posterior communicating arteries hypoplastic or aplastic. MRA NECK: Aortic arch: Abdominal evaluated due to motion related artifact. Innominate artery: Grossly patent. Right common carotid artery: Grossly patent. Right internal and external carotid arteries: Right carotid bifurcation patent. Right internal and external carotid arteries widely patent. Left common carotid artery: Grossly patent. Left internal and external carotid arteries: Left carotid bifurcation patent. Left internal and external carotid arteries widely patent. Left subclavian artery: Grossly patent. Vertebral arteries: Codominant vertebral arteries. Tortuosity of the proximal portions of the arteries. Origins and courses of the bilateral vertebral arteries patent. Other: Soft tissues of the neck normal allowing for the phase of contrast. IMPRESSION: 1. No significant stenosis, aneurysm, or focal vessel occlusion. 2. No dissection, significant stenosis, or focal vessel occlusion. Electronically signed by: Tai Costa M.D. 09/27/2017 3:14 PM Dictated Date/Time: 09/27/2017 3:06 PM
[2017-09-27] MEDS ORDERED: LPT20 PO (15:19)
[2017-09-27] MEDS ORDERED: ASPI81TA28 PO (15:19)
--- NOTE | 2017-09-27 15:26 | Discharge Instructions ---
Discharge Instructions Date of Service Sep 27, 2017. Admission Reason for Admission: Cva (Cerebral Vascular Accident) Discharge Discharge Diagnosis / Problem: CVA Discharge Goals Goal(s): Improve function, Improve disease control Activity Recommendations Activity Limitations: resume your previous activity . Instructions / Follow-Up Instructions / Follow-Up Medications - ASPIRIN: 81mg daily for stroke prevention - LIPITOR: statin medication to treat cholesterol, lowers risk of future stroke Small right pontomedullary stroke, ischemic Dr. Marcial recommends aspirin 81mg daily, blood pressure control, start statin therapy with Lipitor need to control diabetes better, A1c was 8.0, should be closer to 7.0 for better stroke prevention no evidence of vascular disease on MR angiography no intra-cardiac shunt on echocardiogram, the echocardiogram was normal follow up with Dr. Marcial in neurology clinic in one month, call to schedule this visit [phone] he will schedule a repeat MRI of the brain in 3 months time Right ear infection follow up with ENT tomorrow as scheduled Risk Factors for Stroke: You can reduce your chances of stroke by working with your medical provider to adopt a healthy lifestyle. Some specific ways to lower your chance of stroke are: * If you are a smoker, now is the time to stop smoking cigarettes * If you are diabetic, improve the control of your blood sugars * Avoid excessive amounts of alcohol * Control high blood pressure * Lose weight if you are overweight * Be sure to lead an active lifestyle * Eat a healthy diet low in salt, cholesterol and fat You should know about other risk factors for stroke that you are unable to control. These include: * Age 55 years or older * Male gender * Certain racial groups: , or / * Family History of Stroke, Mini stroke or Heart Attack * Sickle Cell Disease Follow Up: It is important for you to keep your follow up appointments with your medical provider. Current Hospital Diet Patient's current hospital diet: AHA Diet (Heart Healthy), Diabetes Type 2 Diet Discharge Diet Recommended Diet: AHA Diet (Heart Healthy), Diabetes Type 2 Diet Pending Studies Studies pending at discharge: no Laboratory Results Hemoglobin A1c Test 09/26/17 22:15 Range/Units Estimated Average Glucose 183 mg/dl Hemoglobin A1c 8.0 H 4.5-5.6 % Medical Emergencies . Who to Call and When: Medical Emergencies: Call 911 immediately if you experience any of the following warning signs and symptoms of Stroke: * Sudden numbness or weakness of the face, arm or leg, especially on one side of the body * Sudden confusion, trouble speaking or understanding * Sudden trouble seeing in one or both eyes * Sudden trouble walking, dizziness, loss of balance or coordination * Sudden severe headache with no cause Do not delay calling 911 if you experience any warning signs or symptoms of a stroke. Delay in seeking medical attention may affect what treatments can be given to you. . Non-Emergent Contact Non-Emergency issues call your: Primary Care Provider, Neurologist Call Non-Emergent contact if: you have any medication questions . . "Provider Documentation" section prepared by Prakash Roberts. . Stroke Core Measures Reason no t-PA for Stroke: Treatment not indicated Reason no antithrom by day 2: Treatment provided - N/A Reason no antithrom at D/C: Treatment provided - N/A Reason no statin at D/C: Treatment provided - N/A Reason no anticoag w/a fib: Treatment not indicated [place] Drug Monitoring Program Search Results: no issues identified
[2017-09-27 15:48] VITALS: BP 128/72; PULSE 85; TEMP 36.8; O2SAT 98
--- NOTE | 2017-09-28 09:29 | Discharge Summary ---
Discharge Summary Date of Service Sep 27, 2017. Discharge Summary Admission Date: Sep 27, 2017 at 10:57 Discharge Date: Sep 27, 2017 Discharge Disposition: Home Principal Diagnosis: Acute right pontomedullary ischemic stroke Problems/Secondary Diagnoses: Right inner ear infection Obesity DM, insulin dependent Hypertension Immunizations: Have You Had Influenza Vaccine: No History of Tetanus Vaccine?: Yes Tetanus Immunization Date: Dec 11, 1999 History of Pneumococcal: No History of Hepatitis B Vaccine: Yes Hepatitis Immunization Date: Dec 10, 2004 Procedures: none Consultations: Neurology Medication Reconciliation New Medications: Aspirin (Aspirin Ec) 81 Mg Tab 81 MG PO DAILY for 30 Days, #30 TABS 3 Refills Atorvastatin (Lipitor) 20 Mg Tab 20 MG PO DAILY for 30 Days, #30 TABS 3 Refills Continued Medications: Chlorhexidine Gluconate ([facility] Antiseptic Skin Clean) 4 % [place] 1 APPLN TOP DAILY APPLY FOR 7 DAYS Dulaglutide (Trulicity) 1.5 Mg/0.5 Ml Inj 1.5 ML SQ WK TAKE ON WED Insulin Glargine (Basaglar Kwikpen) 100 Unit/Ml Inj 30 UNITS SQ UD TAKE 30 UNITS EVERY AM, EVERY DAY BUT WED. Insulin Glargine (Basaglar Kwikpen) 100 Unit/Ml Inj 40 UNITS SQ UD TAKE 40 UNITS IN PM EVERY DAY BUT WED Insulin Glargine (Basaglar Kwikpen) 100 Unit/Ml Inj 20 UNITS SQ BID UD TAKE THIS DOSE ON Lisinopril (Lisinopril) 20 Mg Tab 20 UNITS PO DAILY Repaglinide (Repaglinide) 2 Mg Tab 2 MG PO BID Discharge Exam Patient feeling well, has some right facial droop, numbness on right face and inside of mouth on right side. Diminished hearing on the right. No longer has pain in right ear. No fever/chills. Patient interested in going home. Long discussion about findings on MRI brain. Discussed that MRA head and neck was normal, echocardiogram was normal, no atrial fibrillation on monitor. Discussed need to control sugars better, her A1c was 8.0. She said it was 8.3 a few months ago so slowly improving, it had been much better in the past around 6.5. 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 Discussed starting Lipitor, sent script. She had tried statins in the past, caused muscle cramps. She said her cholesterol was always good when checked with Dr. Lind. Dr. Marcial recommended adding aspirin 81mg daily. He wanted to see patient in one month, was planning on repeating MRI brain in 3 months. Review of Systems: Constitutional: No fever, No chills, No sweats, No weight loss, No weakness , No fatigue, No problem reported Eyes: No worsening of vision, No eye pain, No redness, No discharge, No diplopia, No problem reported ENT: + hearing loss, No unusual epistaxis, No nasal symptoms, No sore throat , No tinnitus, No dental problems, No trouble swallowing Respiratory: No cough, No sputum, No wheezing, No shortness of breath, No dyspnea on exertion, No dyspnea at rest, No hemoptysis, No problem reported Cardiovascular: No chest pain, No orthopnea, No PND, No edema, No claudication, No palpitations, No problem reported Abdomen: No pain, No nausea, No vomiting, No diarrhea, No constipation, No GI bleeding, No problem reported Musculoskeletal: No joint pain, No muscle pain, No swelling, No calf pain, No problem reported Genitourinary - Female: No dysuria, No urinary frequency, No urinary urgency , No urinary incontinence, No urinary retention, No hematuria Neurologic: + paralysis (right facial droop), + numbness/tingling (right face, inside of mouth on right), No memory loss, No weakness, No vertigo, No balance problems, No problem reported Psychiatric: No depression symptoms, No anhedonism, No anxiety, No insomnia , No substance abuse, No problem reported Endocrine: No fatigue, No excessive thirst, No excessive urination, No problem reported Hematologic / Lymphatic: No abnormal bleeding/bruising, No clotting problems , No swollen lymph nodes, No night sweats, No problem reported Integumentary: No rash, No itch, No new/changing skin lesions, No color change, No bleeding, No problem reported Physical Exam: General Appearance: no apparent distress, + obese Eyes: normal inspection, PERRL, EOMI, sclerae normal ENT: TMs normal, pharynx normal, + pertinent finding (decreased hearing on right) Neck: supple, no adenopathy, no JVD, no carotid bruits, trachea midline Respiratory/Chest: chest non-tender, lungs clear, normal breath sounds, no respiratory distress, no accessory muscle use Cardiovascular: regular rate, rhythm, no edema, no gallop, no JVD, no murmur , normal peripheral pulses Abdomen / GI: normal bowel sounds, non tender, soft, no organomegaly Extremities: normal inspection, no calf tenderness, normal capillary refill , no pedal edema, normal range of motion, pelvis stable Neurologic/Psychiatric: no motor/sensory deficits, alert, normal mood/affect , normal reflexes, oriented x 3, + abnormal hot repairman II-XII (facial nerve weakness/ paralysis on right, can still wrinkle forehead on right), + facial droop (right) Skin: normal color, warm/dry, no rash Lymphatic: no adenopathy Hospital Course 57 y/o F Hx DM, HTN, obese. The pt has had BL ear pain, more so on the R for approximately one week. The hearing in her R ear has deteriorated. She has not had fevers. 2 days prior, she also developed numbness of the R side of her face followed by a R facial droop. She denies any upper extremity weakness, visual changes or impaired balance. An MRI of the brain was obtained in the ER. There is evidence of a middle ear infection and mastoiditis. Additionally , a lesion in the ruddy adjacent to the facial nuclei is present and likely represents a subacute infarct. - Acute ischemic stroke, right pontomedullary lesion neurology recommends adding aspirin blood pressure is adequately controlled no lipid panel checked, however, has been normal as outpatient per patient discussed starting Lipitor for stroke prevention, she said it caused her muscle and joint pain in the past, will talk with PCP no atrial fibrillation on monitor, echo normal, MRA head and neck normal needs better diabetes control, she is going to follow up with PCP and weight loss specialist follow up with Dr. Marcial in one month in neurology clinic question of whether lesion on MRI could be a tumor, will get a repeat MRI brain in [address] 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 Discharge Instructions Please refer to the electronic Patient Visit Report (Discharge Instructions) for additional information. Follow-Up Dr. Lind in one week Dr. Marcial in one month Additional Copies To César Lind M.D.; Shobha Marcial M.D.
--- NOTE | 2017-09-28 09:54 | Pharmacy Progress Note ---
Pharmacist Stroke Counseling Date of Service Sep 28, 2017. Scope Pharmacy has been consulted to provide medication discharge counseling for this patient admitted with ischemic stroke/hemorrhagic stroke/ transient ischemic attack as per the Pharmacist Discharge Counseling for Stroke Patients Protocol. Medications on Discharge New Medications: Aspirin (Aspirin Ec) 81 Mg Tab 81 MG PO DAILY for 30 Days, #30 TABS 3 Refills Atorvastatin (Lipitor) 20 Mg Tab 20 MG PO DAILY for 30 Days, #30 TABS 3 Refills Continued Medications: Chlorhexidine Gluconate ([facility] Antiseptic Skin Clean) 4 % [place] 1 APPLN TOP DAILY APPLY FOR 7 DAYS Dulaglutide (Trulicity) 1.5 Mg/0.5 Ml Inj 1.5 ML SQ WK TAKE ON WED Insulin Glargine (Basaglar Kwikpen) 100 Unit/Ml Inj 30 UNITS SQ UD TAKE 30 UNITS EVERY AM, EVERY DAY BUT WED. Insulin Glargine (Basaglar Kwikpen) 100 Unit/Ml Inj 40 UNITS SQ UD TAKE 40 UNITS IN PM EVERY DAY BUT WED Insulin Glargine (Basaglar Kwikpen) 100 Unit/Ml Inj 20 UNITS SQ BID UD TAKE THIS DOSE ON Lisinopril (Lisinopril) 20 Mg Tab 20 UNITS PO DAILY Repaglinide (Repaglinide) 2 Mg Tab 2 MG PO BID Action The above medications, specifically ones for stroke treatment/prophylaxis, have been reviewed in detail with the patient and/or patient paper sales representative(s) prior to discharge. This includes indication, common adverse reactions, drug interactions, and medication administration. Medication counseling has been employed using the teach-back method to ensure understanding. Outcome The patient and/or patient paper sales representative(s) have demonstrated understanding of the medications. Please note, they are aware that the pharmacist will call them within 72 hours post-discharge to confirm that the appropriate medications are being taken and answer any further medication related questions the patient might have at that time. Contact information Individual to be contacted: Bibi Heard Relationship to patient (if applicable): n/a Phone number: Best time to call: [phone] Additional comments: Spoke extensively with Ms. Heard re: her hesitation to re-starting Lipitor. 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 I educated her on the importance of maintaining LDL <70 to prevent future embolic strokes. I educated her on CoQ10 and its potential in helping prevent myopathies. Further, I explained that there is some data to suggest taking statins every other day at a reduced dose can help with muscle pain and lower LDL. I suggested that she talk to her PCP before initiating either option. Thank you for allowing pharmacy to be involved in the care of this patient. Please call [phone] or [phone] with any additional questions
--- NOTE | 2017-10-01 12:40 | Pharmacy Progress Note ---
Pharmacist Post D/C Phone Note Date of phone call: Oct 01, 2017. Individual with whom pharmacist spoke to: Patient The following questions were reviewed during the phone call with responses listed below each: Can you tell me the medications that you are currently taking as well as when and how you take each medication? - yes When have you missed any doses of your medications? - patient did not pick of Lipitor - she is nervous about myalgias and arthralgias. I counseled her to consider starting Crestor maybe low dose every other day. She does not see Dr Lind until October and I said that was okay just consider it. What side effects are you having from your medications? - none What questions do you have about your medications? - none What problems are you having obtaining your medications? - none When is your next appointment with your primary care doctor? - October for Dr Lind -patient did have appointment with ear doctor on Wednesday... was prescribed short course of steroids, Levaquin,and CiproDex for ear infection that could be affecting her symptoms. Additional comments: - Ms Heard is an extremely nice woman who is working hard to improve her symptoms from her stroke. We spoke at length about the statin that is proven to reduce stroke morbidity and mortality. She will consider. As per the Pharmacist Discharge Counseling for Stroke Patients Protocol, this phone call has been completed within 72 hours of discharge. Thank you for allowing us to be involved in the care of this patient.
== END 2017-09-27 16:22 | disposition home or self-care (01) | DRG 66 ==
LOC: C.EDB 21:27 → C.2T 09-27 03:05 → EDBEDREQ 09-27 03:17 → ENRESERV 09-27 03:19 → OBSVTOIN 09-27 10:57
PROVIDERS: ADMIT Internal Medicine; ATTEND Internal Medicine
DX: I63.9 Cerebral infarction, unspecified (principal); I10 Essential (primary) hypertension; E11.9 Type 2 diabetes mellitus without complications; H92.03 Otalgia, bilateral; K21.9 Gastro-esophageal reflux disease without esophagitis; G47.30 Sleep apnea, unspecified; R53.83 Other fatigue; H91.91 Unspecified hearing loss, right ear; Z79.4 Long term (current) use of insulin; R29.701 NIHSS score 1